=== PATIENT | female | born 1950 | race Caucasian/White ===

== ENCOUNTER → 2016-07-13 | Outpatient (CLI) | payer BC ==
[~2016-07-13] MED LIST: CALCTAB5 PO; LANS15CA6 PO; LOSA50TA6 PO; METO25TA3 PO; NIAC500T11 PO; OMEG10007 PO; OXYC-57 PO; SIMV80TA2 PO; VITA400C3 PO
[2016-07-13 12:31] LABS: BLOOD UREA NITROGEN 9 mg/dl (7-18); BUN/CREATININE RATIO 11.3 (10-20); CALCIUM 9.6 mg/dl (8.5-10.1); CARBON DIOXIDE 27 mmol/L (21-32); CHLORIDE 108 mmol/L (98-107); GLUCOSE 100 mg/dl (70-99); POTASSIUM 3.8 mmol/L (3.5-5.1); SODIUM 145 mmol/L (136-145)
== END | disposition home or self-care (01) ==
LOC: C.LABBFT 10:01
PROVIDERS: ATTEND Internal Medicine
DX: I10 Essential (primary) hypertension (principal)

== ENCOUNTER → 2016-12-05 | Day surgery (SDC) | payer BC ==
[2016-11-26 10:07] VITALS: Ht 162.6 cm; Wt 74.1 kg
[~2016-12-05] VITALS: Ht 162.6 cm; Wt 74.1 kg
[~2016-12-05] MED LIST changes: +LIDOCAINE HCL 2% 2 ML VIAL (20MG/ML) ONE; -OXYC-57 PO; +PHENYLEPHRINE 100MCG/ML 5ML SYR ONE; +PROPOFOL IV EMULSION 10 MG/ML 20 ML VIAL IV ONE; +SODIUM CHLORIDE 0.9% 500ML 500 ML IV ONE
--- NOTE | 2016-12-05 09:55 | Endo History and Physical ---
History & Physical Date of Service: December 05, 2016. Chief Complaint: Screening Referring Physician: Dr. Brant Parikh History of Present Illness 66 yo CF who presents for screening colonoscopy. 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, DRINKS TILL GONE") Allergies Coded Allergies: No Known Allergies (Verified , 12/05/16) Current Medications Reported Home Medications Medications Dose Route/Sig Max Daily Dose Days Date Category Vitamin E 400 Iu (Vitamin E) 400 Unit Cap 400 Inter.unit PO QAM 11/26/16 Reported [place]-3 (Fish Oil) 1 Ea Cap 1 Cap PO QAM 11/26/16 Reported Cozaar (Losartan Potassium) 50 Mg Tab 50 Mg PO QAM 11/26/16 Reported Prevacid (Lansoprazole) 15 Mg Capcr 15 Mg PO QAM 01/06/16 Reported Zocor (Simvastatin) 80 Mg Tab 80 Mg PO QPM 01/06/16 Reported Toprol-Xl (Metoprolol Succinate) 25 Mg Tabcr 25 Mg PO QAM 01/06/16 Reported Niacin 500 Mg Tab 2 Tab PO BID 01/06/16 Reported Caltrate (Calcium) 600 Mg Tab 4 Tab PO QAM 01/06/16 Reported Vital Signs Weight (Kilograms): 74.09 Height (Feet): 5 Height (Inches): 4 Date Time Temp Pulse Resp B/P Pulse Ox O2 Delivery O2 Flow Rate FiO2 12/05/16 09:00 36.6 74 20 128/74 97 Room Air Physical Exam General Appearance: WD/WN, no apparent distress Respiratory/Chest: Auscultation: breath sounds normal Cardiovascular: Heart Auscultation: RRR Abdomen: Bowel Sounds: normal Inspection & Palpation: soft, non-distended, no tenderness, guarding & rebound Assessment and Plan Assessment: 66 yo CF who presents for screening colonoscopy. Plan: Proceed with colonoscopy.
--- NOTE | 2016-12-05 10:21 | Discharge Instructions ---
Endoscopy Patient Instructions Date / Procedure(s) Performed December 05, 2016. Colonoscopy Allergy Information Coded Allergies: No Known Allergies (Verified , 12/05/16) Discharge Date / Findings December 05, 2016. Diverticulosis Internal hemorrhoids Medication Instructions Stopped Medication(s): Patient was told to only take her prevacid, metoprolol, and losartan this am. OK to resume all medications today as prescribed Reported Home Medications Medications Dose Route/Sig Max Daily Dose Days Date Category Vitamin E 400 Iu (Vitamin E) 400 Unit Cap 400 Inter.unit PO QAM 11/26/16 Reported [place]-3 (Fish Oil) 1 Ea Cap 1 Cap PO QAM 11/26/16 Reported Cozaar (Losartan Potassium) 50 Mg Tab 50 Mg PO QAM 11/26/16 Reported Prevacid (Lansoprazole) 15 Mg Capcr 15 Mg PO QAM 01/06/16 Reported Zocor (Simvastatin) 80 Mg Tab 80 Mg PO QPM 01/06/16 Reported Toprol-Xl (Metoprolol Succinate) 25 Mg Tabcr 25 Mg PO QAM 01/06/16 Reported Niacin 500 Mg Tab 2 Tab PO BID 01/06/16 Reported Caltrate (Calcium) 600 Mg Tab 4 Tab PO QAM 01/06/16 Reported Provider Instructions Activity Restrictions - No exercising or heavy lifting for 24 hours. - Do not drink alcohol the day of the procedure. - Do not drive a car or operate machinery until the day after the procedure. - Do not make any important decisions or sign important papers in 24 hours after the procedure. Following Day: - Return to full activity which may include returning to work/school. Diet Start your diet with liquids and light foods (jello, soup, juice, toast). Then eat your usual diet if not nauseated. Treatment For Common After Affects For mild abdominal pain, bloating, or excessive gas: - Rest - Eat lightly - Lie on right side Follow-Up Information Follow-up with Dr. Brant Parikh as scheduled Anesthesia Information What You Should Know You have had a procedure that required some medicine to reduce anxiety and discomfort. This treatment is called moderate sedation. After receiving the treatment, you may be sleepy, but you will be able to breathe on your own. The effects of the treatment may last for several hours. Follow these instructions along with Activity/Diet recommendations noted above: * Do NOT do anything where dizziness or clumsiness would be dangerous. * Rest quietly at home today, then you can be up and about tomorrow. * Have a responsible person stay with you the rest of today. * You may have had an I.V. today. If so, you may take the dressing off later today. Recommendations Call your doctor if: * Trouble breathing * Continuous vomiting for more than 24 hours * Temperature above 101 degrees * Severe abdominal pain or bloating * Pain not relieved by pain medicine ordered * There is increased drainage or redness from any incision * A large amount of rectal bleeding greater than 2-3 tablespoons. (If you had a polyp/s removed or have hemorrhoids, a small amount of blood - from the rectum is to be expected.) * You have any unanswered questions or concerns. IN THE EVENT OF A SERIOUS EMERGENCY, GO TO THE NEAREST EMERGENCY ROOM Your discharge instructions were prepared by provider Efrem Humphrey. Patient Instructions Signature Page Abigail Owusu Patient (or Guardian) Signature/Date: I have read and understand the instructions given to me by my caregivers. Caregiver/RN/Doctor Signature/Date: The above-named patient and/or guardian has received patient instructions on this date. + Original Patient Signature Page (only) stays with chart. Please make copy for patient.
[2016-12-05 10:39] VITALS: BP 113/71; PULSE 64; O2SAT 95
--- NOTE | 2016-12-05 10:56 | Anesthesiology Progress Note ---
Anesthesia Post Op Note Date & Time December 05, 2016 at 10:56 Vital Signs Pain Intensity: 0 Vital Signs Past 12 Hours Date Time Temp Pulse Resp B/P Pulse Ox O2 Delivery O2 Flow Rate FiO2 12/05/16 10:39 64 20 113/71 95 Room Air 12/05/16 10:26 66 20 107/68 95 Room Air 12/05/16 10:13 68 20 132/74 96 Room Air 12/05/16 09:00 36.6 74 20 128/74 97 Room Air Notes Mental Status: alert / awake / arousable, participated in evaluation Pt Amnestic to Procedure: Yes Nausea / Vomiting: adequately controlled Pain: adequately controlled Airway Patency, RR, SpO2: stable & adequate BP & HR: stable & adequate Hydration State: stable & adequate Anesthetic Complications: no major complications apparent
--- NOTE | 2016-12-05 10:58 | GI REPORT ---
Procedure Date: 12/05/2016 9:13 AM THIS REPORT HAS BEEN AMENDED Addendum Number: 1 Addendum Date: 12/05/2016 11:03:36 AM Further history reveals that her son has a history of Colon cancer, therefore, repeat colonoscopy in 5 years. Procedure: Colonoscopy Indications: Screening for colorectal malignant neoplasm Medicines: Monitored Anesthesia Care Complications: No immediate complications. Estimated Blood Loss: Estimated blood loss: none. Procedure: Pre-Anesthesia Assessment: - Prior to the procedure, a History and Physical was performed, and patient medications and allergies were reviewed. The patient's tolerance of previous anesthesia was also reviewed. The risks and benefits of the procedure and the sedation options and risks were discussed with the patient. All questions were answered, and informed consent was obtained. Prior Anticoagulants: The patient has taken no previous anticoagulant or antiplatelet agents. ASA Grade Assessment: II - A patient with mild systemic disease. After reviewing the risks and benefits, the patient was deemed in satisfactory condition to undergo the procedure. After I obtained informed consent, the scope was passed under direct vision. Throughout the procedure, the patient's blood pressure, pulse, and oxygen saturations were monitored continuously. The scope was introduced through the anus and advanced to the terminal ileum. The colonoscopy was performed without difficulty. The patient tolerated the procedure well. The quality of the bowel preparation was good. The terminal ileum, ileocecal valve, appendiceal orifice, and rectum were photographed. Findings: Scattered small-mouthed diverticula were found in the entire colon. Non-bleeding internal hemorrhoids were found during retroflexion. The hemorrhoids were small. Impression: - Diverticulosis in the entire examined colon. - Non-bleeding internal hemorrhoids. - No specimens collected. Recommendation: - Resume previous diet. - Continue present medications. - Repeat colonoscopy in 10 years for surveillance. - Return to primary care physician as previously scheduled. Efrem Humphrey, DO 12/05/2016 10:26:01 AM This report has been signed electronically. Note Initiated On: 12/05/2016 9:13 AM I attest to the content of the Intraoperative Record and orders documented therein, exceptions below Efrem Humphrey, DO 12/05/2016 11:04:19 AM This report has been signed electronically.
== END | disposition home or self-care (01) ==
LOC: C.GI 08:38
PROVIDERS: ATTEND Internal Medicine
DX: Z12.11 Encounter for screening for malignant neoplasm of colon (principal); K57.30 Diverticulosis of large intestine without perforation or abscess without bleeding; K64.8 Other hemorrhoids; Z80.0 Family history of malignant neoplasm of digestive organs; F17.210 Nicotine dependence, cigarettes, uncomplicated

== ENCOUNTER → 2017-01-29 | Outpatient (CLI) | payer BC ==
[~2017-01-29] MED LIST changes: -LIDOCAINE HCL 2% 2 ML VIAL (20MG/ML) ONE; -PHENYLEPHRINE 100MCG/ML 5ML SYR ONE; -PROPOFOL IV EMULSION 10 MG/ML 20 ML VIAL IV ONE; -SODIUM CHLORIDE 0.9% 500ML 500 ML IV ONE
[2017-01-29 17:48] LABS: ALT/SGPT 32 U/L (12-78); AST/SGOT 26 U/L (15-37); BLOOD UREA NITROGEN 13 mg/dl (7-18); BUN/CREATININE RATIO 13.8 (10-20); CALCIUM 10.6 mg/dl (8.5-10.1); CARBON DIOXIDE 29 mmol/L (21-32); CHLORIDE 105 mmol/L (98-107); CREATININE 0.93 mg/dl (0.60-1.20); GLUCOSE 104 mg/dl (70-99); POTASSIUM 4.2 mmol/L (3.5-5.1); SODIUM 139 mmol/L (136-145)
[2017-01-29 17:59] LABS: ALB/GLOB RATIO 1.1 (0.9-2); ALKALINE PHOSPHATASE 44 U/L (45-117); CHOLESTEROL 229 mg/dl (0-200); CHOLESTEROL/HDL RATIO 3.7; HDL CHOLESTEROL 62 mg/dl; LDL CHOLESTEROL CALCULATED 142 mg/dl; TRIGLYCERIDES 124 mg/dl (0-150); VERY LOW DENSITY LIPOPROT CALC 25 mg/dl
== END | disposition home or self-care (01) ==
LOC: C.LABBFT 11:28
PROVIDERS: ATTEND Internal Medicine
DX: Z00.00 Encounter for general adult medical examination without abnormal findings (principal); E78.5 Hyperlipidemia, unspecified; I10 Essential (primary) hypertension

== ENCOUNTER → 2017-02-13 | Day surgery (SDC) | payer BC ==
[2017-02-11 09:53] VITALS: BMI 27.0
[~2017-02-13] VITALS: Ht 162.6 cm; Wt 71.8 kg
[~2017-02-13] MED LIST changes: +LIDOCAINE HCL 2% 2 ML VIAL (20MG/ML) ONE; +PROPOFOL IV EMULSION 10 MG/ML 20 ML VIAL IV ONE
[2017-02-13 13:40] VITALS: Ht 162.6 cm; Wt 71.8 kg
--- NOTE | 2017-02-13 13:45 | Endo History and Physical ---
History & Physical Date of Service: Feb 13, 2017. Chief Complaint: Dysphagia Referring Physician: Dr. Parikh History of Present Illness 66 yo CF who presents for EGD secondary to dysphagia. 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, DRINKS TILL GONE") Allergies Coded Allergies: No Known Allergies (Verified , 02/11/17) Current Medications Reported Home Medications Medications Dose Route/Sig Max Daily Dose Days Date Category Vitamin E 400 Iu (Vitamin E) 400 Unit Cap 400 Inter.unit PO QAM 11/26/16 Reported [place]-3 (Fish Oil) 1 Ea Cap 1 Cap PO TID 11/26/16 Reported Cozaar (Losartan Potassium) 50 Mg Tab 50 Mg PO QAM 11/26/16 Reported Prevacid (Lansoprazole) 15 Mg Capcr 15 Mg PO QAM 01/06/16 Reported Zocor (Simvastatin) 80 Mg Tab 80 Mg PO QPM 01/06/16 Reported Toprol-Xl (Metoprolol Succinate) 25 Mg Tabcr 25 Mg PO QAM 01/06/16 Reported Niacin 500 Mg Tab 2 Tab PO BID 01/06/16 Reported Caltrate (Calcium) 600 Mg Tab 2 Tabs PO QAM 01/06/16 Reported Vital Signs Weight (Kilograms): 71.82 Height (Feet): 5 Height (Inches): 4 Physical Exam General Appearance: WD/WN, no apparent distress Respiratory/Chest: Auscultation: breath sounds normal Cardiovascular: Heart Auscultation: RRR Abdomen: Bowel Sounds: normal Inspection & Palpation: soft, non-distended, no tenderness, guarding & rebound Assessment and Plan Assessment: 66 yo CF who presents for EGD secondary to dysphagia. Plan: Proceed with EGD.
--- NOTE | 2017-02-13 14:46 | GI REPORT ---
Procedure Date: 02/13/2017 1:51 PM Procedure: Upper GI endoscopy Indications: Dysphagia Medicines: Monitored Anesthesia Care Complications: No immediate complications. Estimated Blood Loss: Estimated blood loss: none. Procedure: Pre-Anesthesia Assessment: - Prior to the procedure, a History and Physical was performed, and patient medications and allergies were reviewed. The patient's tolerance of previous anesthesia was also reviewed. The risks and benefits of the procedure and the sedation options and risks were discussed with the patient. All questions were answered, and informed consent was obtained. Prior Anticoagulants: The patient has taken no previous anticoagulant or antiplatelet agents. ASA Grade Assessment: II - A patient with mild systemic disease. After reviewing the risks and benefits, the patient was deemed in satisfactory condition to undergo the procedure. After obtaining informed consent, the endoscope was passed under direct vision. Throughout the procedure, the patient's blood pressure, pulse, and oxygen saturations were monitored continuously. The scope was introduced through the mouth, and advanced to the second part of duodenum. The upper GI endoscopy was accomplished without difficulty. The patient tolerated the procedure well. Findings: No endoscopic abnormality was evident in the esophagus to explain the patient's complaint of dysphagia. It was decided, however, to proceed with dilation of the entire esophagus. A guidewire was placed and the scope was withdrawn. Dilation was performed with a Savary dilator with no resistance at 54 Fr. A small hiatus hernia was present. The examined duodenum was normal. Impression: - No endoscopic esophageal abnormality to explain patient's dysphagia. Esophagus dilated. Dilated. - Small hiatus hernia. - Normal examined duodenum. - No specimens collected. Recommendation: - Resume previous diet. - Continue present medications. - Return to primary care physician as previously scheduled. Efrem Humphrey, DO 02/13/2017 2:45:53 PM This report has been signed electronically. Note Initiated On: 02/13/2017 1:51 PM I attest to the content of the Intraoperative Record and orders documented therein, exceptions below
--- NOTE | 2017-02-13 15:06 | Anesthesiology Progress Note ---
Anesthesia Post Op Note Date & Time Feb 13, 2017 at 15:06 Vital Signs Pain Intensity: 0 Vital Signs Past 12 Hours Date Time Temp Pulse Resp B/P (MAP) Pulse Ox O2 Delivery O2 Flow Rate FiO2 02/13/17 14:53 73 16 81/63 (69) 97 Room Air 02/13/17 14:38 72 16 94/63 (73) 96 Room Air 02/13/17 13:55 36.4 65 20 103/68 (80) 95 Room Air Notes Mental Status: alert / awake / arousable, participated in evaluation Pt Amnestic to Procedure: Yes Nausea / Vomiting: adequately controlled Pain: adequately controlled Airway Patency, RR, SpO2: stable & adequate BP & HR: stable & adequate Hydration State: stable & adequate Anesthetic Complications: no major complications apparent
[2017-02-13 15:10] VITALS: BP 145/81; PULSE 68; O2SAT 100
--- NOTE | 2017-02-13 15:28 | Discharge Instructions ---
Endoscopy Patient Instructions Date / Procedure(s) Performed Feb 13, 2017. EGD Allergy Information Coded Allergies: No Known Allergies (Verified , 02/13/17) Discharge Date / Findings Feb 13, 2017. Hiatal hernia Esophageal dilation for 18mm Medication Instructions OK to resume all medications today as prescribed Reported Home Medications Medications Dose Route/Sig Max Daily Dose Days Date Category Vitamin E 400 Iu (Vitamin E) 400 Unit Cap 400 Inter.unit PO QAM 11/26/16 Reported [place]-3 (Fish Oil) 1 Ea Cap 1 Cap PO TID 11/26/16 Reported Cozaar (Losartan Potassium) 50 Mg Tab 50 Mg PO QAM 11/26/16 Reported Prevacid (Lansoprazole) 15 Mg Capcr 15 Mg PO QAM 01/06/16 Reported Zocor (Simvastatin) 80 Mg Tab 80 Mg PO QPM 01/06/16 Reported Toprol-Xl (Metoprolol Succinate) 25 Mg Tabcr 25 Mg PO QAM 01/06/16 Reported Niacin 500 Mg Tab 2 Tab PO BID 01/06/16 Reported Caltrate (Calcium) 600 Mg Tab 2 Tabs PO QAM 01/06/16 Reported Provider Instructions Activity Restrictions - No exercising or heavy lifting for 24 hours. - Do not drink alcohol the day of the procedure. - Do not drive a car or operate machinery until the day after the procedure. - Do not make any important decisions or sign important papers in 24 hours after the procedure. Following Day: - Return to full activity which may include returning to work/school. Diet Start your diet with liquids and light foods (jello, soup, juice, toast). Then eat your usual diet if not nauseated. Treatment For Common After Affects For mild abdominal pain, bloating, or excessive gas: - Rest - Eat lightly - Lie on right side Follow-Up Information Follow-up with DR. BHASKAR OLEARY as scheduled Anesthesia Information What You Should Know You have had a procedure that required some medicine to reduce anxiety and discomfort. This treatment is called moderate sedation. After receiving the treatment, you may be sleepy, but you will be able to breathe on your own. The effects of the treatment may last for several hours. Follow these instructions along with Activity/Diet recommendations noted above: * Do NOT do anything where dizziness or clumsiness would be dangerous. * Rest quietly at home today, then you can be up and about tomorrow. * Have a responsible person stay with you the rest of today. * You may have had an I.V. today. If so, you may take the dressing off later today. Recommendations Call your doctor if: * Trouble breathing * Continuous vomiting for more than 24 hours * Temperature above 101 degrees * Severe abdominal pain or bloating * Pain not relieved by pain medicine ordered * There is increased drainage or redness from any incision * A large amount of rectal bleeding greater than 2-3 tablespoons. (If you had a polyp/s removed or have hemorrhoids, a small amount of blood - from the rectum is to be expected.) * You have any unanswered questions or concerns. IN THE EVENT OF A SERIOUS EMERGENCY, GO TO THE NEAREST EMERGENCY ROOM Your discharge instructions were prepared by provider Efrem Humphrey. Patient Instructions Signature Page Abigail Owusu Patient (or Guardian) Signature/Date: I have read and understand the instructions given to me by my caregivers. Caregiver/RN/Doctor Signature/Date: The above-named patient and/or guardian has received patient instructions on this date. + Original Patient Signature Page (only) stays with chart. Please make copy for patient.
== END | disposition home or self-care (01) ==
LOC: C.GI 13:01
PROVIDERS: ATTEND Internal Medicine
DX: R13.10 Dysphagia, unspecified (principal); K44.9 Diaphragmatic hernia without obstruction or gangrene; F17.200 Nicotine dependence, unspecified, uncomplicated; Z79.899 Other long term (current) drug therapy

== ENCOUNTER → 2017-02-25 | Outpatient (CLI) | payer BC ==
[~2017-02-25] MED LIST changes: -LIDOCAINE HCL 2% 2 ML VIAL (20MG/ML) ONE; -PROPOFOL IV EMULSION 10 MG/ML 20 ML VIAL IV ONE
--- NOTE | 2017-02-25 11:47 | DIAGNOSTIC IMAGING REPORT ---
(BARIUM SWALLOW) ESOPHAGUS CLINICAL HISTORY: 66 years-old Female with ACID REFLUX, DYSPHAGIA. Patient reports recent endoscopy without appreciable findings. TECHNIQUE: Barium contrast and effervescent crystals were administered to the patient under fluoroscopic examination. Multiple images were obtained and submitted for review. FLUOROSCOPY TIME: 1.3 minutes COMPARISON: Cervical spine MRI 10/06/2009. FINDINGS: The patient did experience some silent aspiration which is documented on image 13 of 28. During deglutition, contrast material flowed freely through the cervical esophagus. No filling defect or mucosal abnormality is identified. No abnormal stricturing or mass effect is seen. The mid to distal esophagus is well coated and distended. No abnormal stricturing or mucosal abnormality is identified. There is moderate gastroesophageal reflux noted at the end of the exam without large hiatal hernia identified. The gastroesophageal junction appears to be within normal limits. IMPRESSION: 1. Mild silent aspiration noted which could be further evaluated with a swallow study along with speech therapy. 2. Moderate gastroesophageal reflux. The above report was generated using voice recognition software. It may contain grammatical, syntax or spelling errors. Electronically signed by: Sarthak Munguia M.D. 02/25/2017 9:39 AM Dictated Date/Time: 02/25/2017 9:37 AM
== END | disposition home or self-care (01) ==
LOC: C.RAD 09:03
PROVIDERS: ATTEND Registered Nurse
DX: R13.10 Dysphagia, unspecified (principal); K21.9 Gastro-esophageal reflux disease without esophagitis; T17.920A Food in respiratory tract, part unspecified causing asphyxiation, initial encounter; X58.XXXA Exposure to other specified factors, initial encounter

== ENCOUNTER → 2017-03-07 | Outpatient (CLI) | payer BC ==
--- NOTE | 2017-03-07 13:52 | DIAGNOSTIC IMAGING REPORT ---
VIDEO SWALLOW CLINICAL HISTORY: 66 years-old Female presenting with GERD without esophagitis, dysphasia. TECHNIQUE: Video fluoroscopic evaluation of swallowing was performed in the AP and lateral projections in conjunction with speech pathology. The patient was administered various textures, including nectar-thick and thin liquid barium, a barium coated wafer, and barium pudding. COMPARISON: None. FINDINGS: There is normal hyoid excursion and epiglottic deflection. No significant penetration or aspiration identified. Swallowing function is within normal limits. Fluoroscopy dosage (mGy): Not available. Fluoroscopy time: 2 minutes. Number of fluoroscopic spot images: 0. IMPRESSION: 1. No aspiration identified. 2. Please see the speech pathologist report for detailed findings and recommendations. Electronically signed by: Kartik Winter M.D. 03/07/2017 1:51 PM Dictated Date/Time: 03/07/2017 1:50 PM
--- NOTE | 2017-03-08 13:24 | SWALLOWING EVALUATION ---
HISTORY: This 66 year old woman was referred for a video swallow study at [facility] in order to rule out aspiration and identify the safest consistencies for optimal oral intake. The patient reports globus sensation along with food and liquid becoming stuck in the throat. She participated in an EGD on 02/13/17 which revealed a small hiatal hernia. A Barium Swallow was also completed on 02/25/17, where silent aspiration was identified along with moderate esophageal dysmotility. PMH is significant for: HTN, HLD, and GERD. Patient reports that she has been taking reflux medications for ~ 20 years. Current diet is regular. PROCEDURE: The patient was seen in the Radiology Department of [facility] for the VFSS. Cursory examination of the oral cavity revealed natural dentition. Oral motor function was wnl. The patient was seated on a stool and was viewed in both the Anterior-Posterior (A-P) and Lateral planes. Volitional phonation exercises completed in the A-P plane revealed bilateral vocal fold movement and vocal intensity within functional limits. In the lateral plane, the patient was given the following boluses: 1 tsp. thin liquid barium x 2, single swallow thin liquid barium self-presented from a cup, sequential swallows of thin liquid barium self-presented from a cup, 1 tsp. nectar-thick liquid barium, single swallow nectar-thick liquid barium self-presented from a cup, 1 tsp. barium pudding, and 1 club cracker coated in barium pudding. The patient was then repositioned into the A-P plane and given the following boluses: 1 tsp. nectar thick barium and 1 tsp. barium pudding. RESULTS: Oral Stage: Lip closure was adequate. The patient was able to maintain a cohesive liquid bolus in the oral cavity without any escape during the liquid bolus hold task. Mastication and lingual motion for bolus transport was noted to be slow. There was retention lining the tongue and palate after the swallow. The initiation of the pharyngeal swallow was delayed and occurred when the bolus head reached the pyriforms. Pharyngeal Stage: Soft palate elevation was complete. Laryngeal elevation revealed complete superior movement of the thyroid cartilage with complete approximation of the arytenoids to the epiglottic base. Anterior hyoid excursion was partially reduced. Epiglottic deflection was also partially reduced as at times the epiglottis did not invert past the horizontal position. Laryngeal vestibular closure was complete. The pharyngeal stripping wave was present and complete. There was complete distention and duration of the opening to the pharyngoesophageal segment (PES). Tongue base retraction was reduced, with a trace column of contrast located between the tongue base and pharyngeal wall during the swallow. There was trace retention located in the valleculae and along the epiglottis after the swallow. The pharyngeal stage of the swallow was mildly impaired. There was no evidence of laryngeal penetration or aspiration. The patient presented with a good sensory response to the mild pharyngeal retention, and was able to produce a second swallow in an attempt to clear. This was effective. Esophageal stage: There was complete esophageal clearance. SUMMARY/RECOMMENDATIONS: This patient presents with mild edwina-pharyngeal dysphagia. Although not present for this study, she has known s/s of esophageal dysfunction. The following is recommended: 1. Regular diet, "slippery" and thin liquids. 2. Aspiration and GERD (reflux) precautions. Fully upright while eating and 30 minutes after meals. Head of the bed should be elevated to 30 degrees at all times to include while asleep. 3. Safe swallow strategies: Avoid foods that are dry, thick, pasty, or doughy. Use of condiments such as gravy to assist with making foods moist. Rest breaks while eating. Alternate solids and liquids. Double swallow as needed. 4. Follow up with PCP. Consider modification of medication management for reflux as indicated. A summary of the results and recommendations was discussed with the patient immediately following the study with verbal understanding. The patient was also provided with verbal education regarding a "slippery" diet for improved comfort while eating (avoiding foods that are dry, thick, pasty, or doughy) as needed. She verbalized understanding. Thank you for referral of this patient. Please contact me at if any additional information is needed.
== END | disposition home or self-care (01) ==
LOC: C.RAD 12:56
PROVIDERS: ATTEND Registered Nurse
DX: K21.9 Gastro-esophageal reflux disease without esophagitis (principal); R13.10 Dysphagia, unspecified